=== PATIENT | female | born 2000 | race Caucasian/White ===

== ENCOUNTER 2020-11-05 13:59 | Inpatient (IN) ==
--- NOTE | 2020-11-05 14:20 | Emergency Department Note ---
Impression & Plan Suicidal ideation ED Provider Note NAME: BENOIT WONG AGE: 20 SEX: F : 2000 ARRIVES VIA: Walk-In INFORMANT: [Patient] ED PROVIDER(S): [Hermilo Burkett MD] CHIEF COMPLAINT: Mental health evaluation HISTORY OF PRESENT ILLNESS: The patient is a 20-year-old female presents to the ED for suicidal thoughts with a plan to overdose on pills. She also has this urge to pick at her skin. The patient has a history of depression and possibly bipolar disease. She sta joyce that recently, she has been under some increased stress. She feels stressed with school as finals are coming up. She had a recent pet . In addition, she did not get into the masters program at [facility] [employer] that she had applied for. Patient had her scheduled visit with [facility] today, she admitted to the above and she was sent here for evaluation. She is currently voluntary. The patient does admit to taking some extra pills to help with sleep although, she just took a few extra pills, she did not take a large amount. The patient denies cough or cold or congestion. There has been no fever or chills. She has been in baseline health otherwise. REVIEW OF SYSTEMS: See HPI for pertinent positives and negatives. A total of ten systems were reviewed and were otherwise negative. PMHx/PSHx: See Below SOCIAL HISTORY: See Below. PHYSICAL EXAM: GENERAL: Patient is in no acute distress. HEENT: No acute trauma, normocephalic atraumatic, mucous membranes moist, no nasal congestion, no scleral icterus. NECK: No stridor, no adenopathy, no meningismus, trachea is midline. LUNGS: Clear to auscultation bilaterally, no wheeze, no rhonchi, breath sounds equal. HEART: Without murmurs gallops or rubs, regular rate and rhythm. ABDOMEN: Soft, nontender, bowel sounds positive, no hernias, no peritonitis. EXTREMITIES: No cyanosis or edema, full range of motion of all the joints without pain or difficulty, no signs for acute trauma. NEUROLOGIC: Oriented x 3, no acute motor or sensory deficits, no focal weakness. SKIN: No rash, no jaundice, no diaphoresis. Psychiatric: Voluntary, somewhat flattened affect. Admits to an urge to overdose on pills and to pick at her skin. Cooperative. DIFFERENTIAL DIAGNOSIS: Mood disorder, infection, hypoglycemia, electrolyte abnormalities, cardiac sources, suicidal ideation, bipolar disease, intracerebral event, toxicologic etiology, trauma, neurologic event, as well as other pathologies. EMERGENCY DEPARTMENT COURSE/PROCEDURES: MEDICAL DECISION MAKING: There is no leukocytosis or worrisome anemia. There is a normal platelet count. No significant electrolyte abnormality or kidney failure. No concerning liver enzyme elevation. The patient appears to be in a euthyroid state. testing is negative. Urinalysis shows some contamination, no infection. Aspirin, Tylenol and alcohol levels were undetectable. Urine tox was negative. Covid and influenza testing were negative. On exam, the patient was cooperative. She did admit to some suicidal ideation and some thoughts of overdosing on pills. The patient was felt medically clear for a psychiatric evaluation. She was seen by our psychiatry case management team. Patient is being admitted voluntarily to [address] [place] [address] psychiatric floor. Past Med/Surg History Medical History Gastric reflux Mononucleosis Social History Smoking Status: Never smoker Hx Alcohol Use: No Preferred Language: [place] Leone[place] Communication Ability: Effective Visual Impairment: No Limitations Hearing Ability: Normal Beliefs That Will Affect Care: None current occupational status: student Feels Safe at Home: Yes Assistive Devices: None Allergies Allergies Allergy/AdvReac Type Severity Reaction Status Date / Time No Known Allergies Allergy Unverified 11/05/20 17:10 Home Meds Home Medications Medication Instructions Recorded Confirmed fluoxetine 20 mg PO HS 06/12/18 11/05/20 fluoxetine 10 mg PO HS 11/05/20 11/05/20 lorazepam 1 mg PO HS PRN 11/05/20 11/05/20 lurasidone [Latuda] 20 mg PO DAILY 11/05/20 11/05/20 trazodone 50 mg PO HS PRN 11/05/20 11/05/20 Results & Data (ED) Vital Signs Vital Signs - 24 hr 11/05/20 14:01 Temperature 36.3 C L Temperature Source Temporal Artery Scan Pulse Rate 96 H Respiratory Rate 16 Respiratory Effort / Characteristics Non-Labored Respiratory Depth Normal Blood Pressure 122/82 Blood Pressure Mean 95 Pulse Oximetry 99 Oxygen Delivery Method Room Air Sepsis Recent Fever Within 48 Hours No Sepsis New/Unexplained Change in Mental Status No Sepsis Action Taken by Nursing No Action Required Home Medications Current Medication List: was personally reviewed by me Laboratory Data Attestation: I reviewed the patient's lab results. Result diagrams: 11/05/20 14:31 11/05/20 14:31 Lab Results 11/05/20 11/05/20 11/05/20 Range/Units 14:20 14:20 14:31 WBC 7.77 (4.8-10.8) K/uL RBC 4.53 (4.2-5.4) M/uL Hgb 14.6 (12.0-16.0) g/dL Hct 40.0 (37-47) % MCV 88.3 (80-100) fL MCH 32.2 (25-34) pg MCHC 36.5 H (32-36) g/dL RDW Std Deviation 38.4 (36.4-46.3) fL RDW Coeff of Antonio 12.0 (11.5-14.5) % Plt Count 346 (130-400) K/uL MPV 9.5 (7.4-10.4) fL Immature Gran % (Auto) 0.4 % Neut % (Auto) 74.8 % Lymph % (Auto) 18.3 % [place] % (Auto) 6.0 % Eos % (Auto) 0.4 % Baso % (Auto) 0.1 % Neut # (Auto) 5.81 (1.4-6.5) K/uL Lymph # (Auto) 1.42 (1.2-3.4) K/uL [place] # (Auto) 0.47 (0.11-0.59) K/uL Eos # (Auto) 0.03 (0-0.5) K/uL Baso # (Auto) 0.01 (0-0.2) K/uL Immature Gran # (Auto) 0.03 H (0.00-0.02) K/uL Sodium (136-145) mmol/L Potassium (3.5-5.1) mmol/L Chloride (98-107) mmol/L Carbon Dioxide (21-32) mmol/L Anion Gap (3-11) BUN (7-18) mg/dl Creatinine (0.6-1.2) mg/dl Est Cr Clr Drug Dosing ml/min Est GFR ( Amer) Est GFR (Non-Af Amer) BUN/Creatinine Ratio (10-20) Glucose (70-99) mg/dl Calcium (8.5-10.1) mg/dl Total Bilirubin (0.2-1) mg/dl AST (15-37) U/L ALT (12-78) U/L Alkaline Phosphatase (45-117) U/L Total Protein (6.4-8.2) gm/dl Albumin (3.4-5.0) gm/dl Globulin (2.5-4.0) gm/dl Albumin/Globulin Ratio (0.9-2) TSH (0.300-4.500) uIu/ml HCG, Qual (Negative) Urine Color Yellow Urine Appearance Cloudy A (Clear) Urine pH 5.5 (4.5-7.5) Ur Specific [place] 1.024 (1.000-1.030) Urine Protein Negative (Negative) Urine Glucose (UA) Negative (Negative) Urine Ketones Trace H (Negative) Urine Blood 1+ H (Negative) Urine Nitrite Negative (Negative) Urine Bilirubin Negative (Negative) Urine Urobilinogen Negative (Negative) Ur Leukocyte Esterase Negative (Negative) Urine WBC (Auto) 10-30 H (0-5) /hpf Urine RBC (Auto) 0-4 (0-4) /hpf U Hyaline Cast (Auto) 0 (0-5) /lpf U Epithel Cells (Auto) >30 H (0-5) /lpf Urine Bacteria (Auto) 2+ H (Negative) Urine Yeast Not Reportable Salicylates (2.8-20) mg/dl Urine Opiates Screen Neg (Neg) Ur Methadone, Qual Neg (Neg) Acetaminophen (10-30) ug/ml Urine Barbiturates Neg (Neg) Ur Phencyclidine (PCP) Neg (Neg) U Amphetamin/Meth Scrn Neg (Neg) MDMA (Ecstasy) Screen Neg (Neg) U Benzodiazepines Scrn Neg (Neg) Ur Cocaine Metabolite Neg (Neg) U Marijuana (THC) Screen Neg (Neg) Ethyl Alcohol mg/dL (0-3) mg/dl COVID-19 Eval Order SARS-CoV-2 (PCR) (Negative) Influenza Type A (PCR) (Neg) Influenza Type B (PCR) (Neg) RSV (RT-PCR) (Neg) 11/05/20 11/05/20 11/05/20 Range/Units 14:31 14:31 14:31 WBC (4.8-10.8) K/uL RBC (4.2-5.4) M/uL Hgb (12.0-16.0) g/dL Hct (37-47) % MCV (80-100) fL MCH (25-34) pg MCHC (32-36) g/dL RDW Std Deviation (36.4-46.3) fL RDW Coeff of Antonio (11.5-14.5) % Plt Count (130-400) K/uL MPV (7.4-10.4) fL Immature Gran % (Auto) % Neut % (Auto) % Lymph % (Auto) % [place] % (Auto) % Eos % (Auto) % Baso % (Auto) % Neut # (Auto) (1.4-6.5) K/uL Lymph # (Auto) (1.2-3.4) K/uL [place] # (Auto) (0.11-0.59) K/uL Eos # (Auto) (0-0.5) K/uL Baso # (Auto) (0-0.2) K/uL Immature Gran # (Auto) (0.00-0.02) K/uL Sodium 138 (136-145) mmol/L Potassium 3.7 (3.5-5.1) mmol/L Chloride 107 (98-107) mmol/L Carbon Dioxide 26 (21-32) mmol/L Anion Gap 5.0 (3-11) BUN 12 (7-18) mg/dl Creatinine 0.74 (0.6-1.2) mg/dl Est Cr Clr Drug Dosing 101.4 ml/min Est GFR ( Amer) 134.2 Est GFR (Non-Af Amer) 115.8 BUN/Creatinine Ratio 16.0 (10-20) Glucose 85 (70-99) mg/dl Calcium 8.8 (8.5-10.1) mg/dl Total Bilirubin 0.6 (0.2-1) mg/dl AST 9 L (15-37) U/L ALT 20 (12-78) U/L Alkaline Phosphatase 103 (45-117) U/L Total Protein 7.2 (6.4-8.2) gm/dl Albumin 4.3 (3.4-5.0) gm/dl Globulin 2.9 (2.5-4.0) gm/dl Albumin/Globulin Ratio 1.5 (0.9-2) TSH 1.150 (0.300-4.500) uIu/ml HCG, Qual (Negative) Urine Color Urine Appearance (Clear) Urine pH (4.5-7.5) Ur Specific [place] (1.000-1.030) Urine Protein (Negative) Urine Glucose (UA) (Negative) Urine Ketones (Negative) Urine Blood (Negative) Urine Nitrite (Negative) Urine Bilirubin (Negative) Urine Urobilinogen (Negative) Ur Leukocyte Esterase (Negative) Urine WBC (Auto) (0-5) /hpf Urine RBC (Auto) (0-4) /hpf U Hyaline Cast (Auto) (0-5) /lpf U Epithel Cells (Auto) (0-5) /lpf Urine Bacteria (Auto) (Negative) Urine Yeast Salicylates < 1.7 L (2.8-20) mg/dl Urine Opiates Screen (Neg) Ur Methadone, Qual (Neg) Acetaminophen < 2 L (10-30) ug/ml Urine Barbiturates (Neg) Ur Phencyclidine (PCP) (Neg) U Amphetamin/Meth Scrn (Neg) MDMA (Ecstasy) Screen (Neg) U Benzodiazepines Scrn (Neg) Ur Cocaine Metabolite (Neg) U Marijuana (THC) Screen (Neg) Ethyl Alcohol mg/dL < 3.0 (0-3) mg/dl COVID-19 Eval Order SARS-CoV-2 (PCR) (Negative) Influenza Type A (PCR) (Neg) Influenza Type B (PCR) (Neg) RSV (RT-PCR) (Neg) 11/05/20 11/05/20 11/05/20 Range/Units 14:31 14:49 14:49 WBC (4.8-10.8) K/uL RBC (4.2-5.4) M/uL Hgb (12.0-16.0) g/dL Hct (37-47) % MCV (80-100) fL MCH (25-34) pg MCHC (32-36) g/dL RDW Std Deviation (36.4-46.3) fL RDW Coeff of Antonio (11.5-14.5) % Plt Count (130-400) K/uL MPV (7.4-10.4) fL Immature Gran % (Auto) % Neut % (Auto) % Lymph % (Auto) % [place] % (Auto) % Eos % (Auto) % Baso % (Auto) % Neut # (Auto) (1.4-6.5) K/uL Lymph # (Auto) (1.2-3.4) K/uL [place] # (Auto) (0.11-0.59) K/uL Eos # (Auto) (0-0.5) K/uL Baso # (Auto) (0-0.2) K/uL Immature Gran # (Auto) (0.00-0.02) K/uL Sodium (136-145) mmol/L Potassium (3.5-5.1) mmol/L Chloride (98-107) mmol/L Carbon Dioxide (21-32) mmol/L Anion Gap (3-11) BUN (7-18) mg/dl Creatinine (0.6-1.2) mg/dl Est Cr Clr Drug Dosing ml/min Est GFR ( Amer) Est GFR (Non-Af Amer) BUN/Creatinine Ratio (10-20) Glucose (70-99) mg/dl Calcium (8.5-10.1) mg/dl Total Bilirubin (0.2-1) mg/dl AST (15-37) U/L ALT (12-78) U/L Alkaline Phosphatase (45-117) U/L Total Protein (6.4-8.2) gm/dl Albumin (3.4-5.0) gm/dl Globulin (2.5-4.0) gm/dl Albumin/Globulin Ratio (0.9-2) TSH (0.300-4.500) uIu/ml HCG, Qual Negative (Negative) Urine Color Urine Appearance (Clear) Urine pH (4.5-7.5) Ur Specific [place] (1.000-1.030) Urine Protein (Negative) Urine Glucose (UA) (Negative) Urine Ketones (Negative) Urine Blood (Negative) Urine Nitrite (Negative) Urine Bilirubin (Negative) Urine Urobilinogen (Negative) Ur Leukocyte Esterase (Negative) Urine WBC (Auto) (0-5) /hpf Urine RBC (Auto) (0-4) /hpf U Hyaline Cast (Auto) (0-5) /lpf U Epithel Cells (Auto) (0-5) /lpf Urine Bacteria (Auto) (Negative) Urine Yeast Salicylates (2.8-20) mg/dl Urine Opiates Screen (Neg) Ur Methadone, Qual (Neg) Acetaminophen (10-30) ug/ml Urine Barbiturates (Neg) Ur Phencyclidine (PCP) (Neg) U Amphetamin/Meth Scrn (Neg) MDMA (Ecstasy) Screen (Neg) U Benzodiazepines Scrn (Neg) Ur Cocaine Metabolite (Neg) U Marijuana (THC) Screen (Neg) Ethyl Alcohol mg/dL (0-3) mg/dl COVID-19 Eval Order [facility] at [facility] SARS-CoV-2 (PCR) NEGATIVE (Negative) Influenza Type A (PCR) Negative (Neg) Influenza Type B (PCR) Negative (Neg) RSV (RT-PCR) Negative (Neg) Administered Medications Fluoxetine HCl (Fluoxetine Hcl 10 Mg Cap) 30 mg PO HS GRAYSON Stop: 12/05/20 20:59 Last Admin: 11/05/20 21:40 Dose: 30 mg Documented by: [id number] Lorazepam (Lorazepam 1 Mg Tab) 1 mg PO HS PRN PRN Reason: Anxiety Stop: 12/05/20 17:41 Last Admin: 11/05/20 20:41 Dose: 1 mg Documented by: [id number] Lurasidone HCl (Lurasidone Hcl 40 Mg Tab) 20 mg PO HS GRAYSON Stop: 12/05/20 20:59 Last Admin: 11/05/20 21:39 Dose: 20 mg Documented by: [id number] Discharge Plan Visit Data Chief Complaint: Mental Health Evaluation Stated Complaint: MENTAL HEALTH EVALUATION ED Provider: Hermilo Burkett Discharge Problem: Suicidal ideation Patient Disposition: Admitted As Inpatient Condition: Good Discharge Instructions Interventions: ED Discharge Assessment Last Done: 11/05/20 18:30
[2020-11-05 14:37] LABS: Appearance Urine Cloudy (Clear); Bacteria Urine Automated 2+ (Negative); Bilirubin Urine Negative (Negative); Blood Urine 1+ (Negative); Color Urine Yellow; Epithelial Cell Urine Auto >30 /lpf (0-5); Glucose Urine UA Negative (Negative); Ketones Urine Trace (Negative); Leukocyte Esterase Urine Negative (Negative); Nitrite Urine Negative (Negative); Protein Urine Negative (Negative); Specific Gravity Urine 1.024 (1.000-1.030); Urobilinogen Urine Negative (Negative); pH Urine 5.5 (4.5-7.5)
[2020-11-05 14:52] LABS: Basophils # (auto) 0.01 K/uL (0-0.2); Basophils % (auto) 0.1 %; Eosinophils # (auto) 0.03 K/uL (0-0.5); Eosinophils % (auto) 0.4 %; Hemoglobin 14.6 g/dL (12.0-16.0); Immature Granulocytes # (auto) 0.03 K/uL (0.00-0.02); Immature Granulocytes % (auto) 0.4 %; Lymphocytes # (auto) 1.42 K/uL (1.2-3.4); Lymphocytes % (auto) 18.3 %; Mean Corpuscular Hemoglobin 32.2 pg (25-34); Mean Corpuscular Hgb Conc 36.5 g/dL (32-36); Mean Corpuscular Volume 88.3 fL (80-100); Mean Platelet Volume 9.5 fL (7.4-10.4); Monocytes # (auto) 0.47 K/uL (0.11-0.59); Neutrophils # (auto) 5.81 K/uL (1.4-6.5); Neutrophils % (auto) 74.8 %; Platelet Count 346 K/uL (130-400); RDW Standard Deviation 38.4 fL (36.4-46.3); Red Blood Count 4.53 M/uL (4.2-5.4); White Blood Count 7.77 K/uL (4.8-10.8)
[2020-11-05 15:13] LABS: Acetaminophen < 2 ug/ml (10-30); Salicylate < 1.7 mg/dl (2.8-20)
[2020-11-05 15:14] LABS: Albumin Level 4.3 gm/dl (3.4-5.0); Calcium 8.8 mg/dl (8.5-10.1); Creatinine Clr Calc Pharmacy 101.4 ml/min; Est GFR (African American) 134.2; Est GFR (Non-African American) 115.8; Potassium 3.7 mmol/L (3.5-5.1)
[2020-11-05 15:15] LABS: Amphetamines+Metham, Urine Neg (Neg); Barbiturates, Urine Neg (Neg); Benzodiazepine, Urine Neg (Neg); Cocaine, Urine Neg (Neg); MDMA (Ecstacy), Urine Neg (Neg); Methadone, Urine Neg (Neg); Opiate, Urine Neg (Neg); Phencyclidine, Urine Neg (Neg)
[2020-11-05 15:15] LABS: Pregnancy Test, Serum Negative (Negative)
[2020-11-05 15:20] LABS: Cast Urine Automated 0 /lpf (0-5); RBC Urine Automated 0-4 /hpf (0-4)
[2020-11-05 15:24] LABS: Albumin Globulin Ratio 1.5 (0.9-2); Bilirubin,Total 0.6 mg/dl (0.2-1); Globulin 2.9 gm/dl (2.5-4.0); Thyroid Stimulating Hormone 1.15 uIu/ml (0.300-4.500); Total Protein 7.2 gm/dl (6.4-8.2)
[2020-11-05 15:52] LABS: Influenza A virus by PCR Negative (Neg); Influenza B virus by PCR Negative (Neg); RSV by PCR Negative (Neg); SARS CoV2 RNA(COVID-19) InHosp NEGATIVE (Negative)
[2020-11-05] MEDS ORDERED: ALUMINUM/MAGNESIUM SUSP 30 ML UDC PO PRN (17:38)
[2020-11-05] MEDS ORDERED: SODIUM CHLORIDE 0.65% NA SOLN 45 ML (OCEAN) PRN (17:38)
[2020-11-05] MEDS ORDERED: BISMUTH SUBSALICYLATE LIQD 236 ML PO PRN (17:38)
[2020-11-05] MEDS ORDERED: ACETAMINOPHEN 325 MG TAB PO PRN (17:38)
[2020-11-05] MEDS ORDERED: MAGNESIUM HYDROXIDE SUSP 30 ML UDC PO PRN (17:38)
[2020-11-05] MEDS: LORazepam 1 MG TAB PO PRN (20:41)
[2020-11-05] MEDS: LURASIDONE HCL 40 MG TAB PO SCH (21:39)
[2020-11-05] MEDS: FLUoxetine HCL 10 MG CAP PO SCH (21:40)
--- NOTE | 2020-11-06 07:53 | History & Physical ---
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 She was referred by her outpatient therapist at [facility]. Inpatient treatment is medically necessary due to the severity of symptoms and risk for suicide if discharged. (1) Suicidal ideation: 11/06 - Continue voluntary hospitalization, suicide checks for safety. Encourage group attendance and participation, work on healthy coping skills and discharge safety plan. Coordinate care with outpatient clinicians, and family meeting as indicated. (2) Bipolar disorder: 11/06 - Coordinate with outpatient Dr. Cartagena, request records and continue current meds, as doses just adjusted in the past couple of days - Check fasting labs for monitoring on an atypical antipsychotic (3) Generalized anxiety disorder: 11/06 - Continue SSRI which was just increased a couple of days ago, will continue and monitor - Work on behavioral techniques for managing anxiety, patient would like to be referred for therapy in her hometown as returning there in a couple weeks after the ester ends Risk Factors Assessment Male: No : Yes Do You Have Access To A Gun?: No Health Problems: No Mental Health Diagnoses: Yes Substance Use Disorders: No Family History of Suicide: No Previous Psychiatric Hospitalization: No Hopelessness: Yes Smoker: No Protective Factors Assessment : No Responsible for Young Children: No Employed: No Psychiatric History Identifying Data BENOIT WONG is a 20-year-old F [employer] student who has a history of depression, rule out bipolar, and anxiety, and was admitted on 11/05/20 17:38 on a 201 voluntary commitment for suicidal ideation. Chief Complaint "Well I had my weekly call with [facility], they asked if I'd ever thought about going to hospital". History of Present Illness Patient was referred to the ER from [facility] after she reported suicidal thoughts with a plan to overdose. She reported stress due to not getting into the masters program she wanted. She reported sometimes taking extra medication when she is unable to sleep. She reported decreased appetite sleep disruption, fatigue, and lack of motivation. She reported self injury since age 11 by scratching and skin picking. She was continued on her home medications, fluoxetine 30 mg daily lurasidone 20 mg at bedtime (just reduced from 40 mg a couple of days ago due to lethargy), trazodone 50 mg at bedtime and lorazepam 1 mg at bedtime. She agreed to voluntary hospitalization and signed in, but soon after arrival on the unit asked to leave, stating she wanted to leave to get back to school projects. She was offered a 72-hour notice but declined. On my assessment she reports mood has worsened over the past couple weeks, rates it a 3 out of 10. She reports suicidal thoughts, "I just want to sleep for a long time, I take sedatives to go to bed." Admits taking extra "sedatives" include trazodone, Tylenol PM, melatonin, Ativan, and Benadryl. She report no motivation to do schoolwork or go to class, and has been missing classes, with negative impact to academic performance. She usually gets all As but currently has B and C. She reports intentional weight loss. Sleep has been reduced even with various sleep medications. Recently started trazodone 100mg but felt intoxicated the next day, so dose was reduced. Racing thoughts and worry impairs sleep, "everything that's going on in my life." She denies ever being diagnosed with bipolar, "that's just something I think that I have," noting hypersexuality, racing thoughts, high and low moods, and having hallucinations on a medication, possibly lamotrigine? She reports episodes of 1-2 weeks of elevated mood, increased energy, decreased need for sleep, increase in goal directed activity (reading several books in a week, or writing a play and thinking she could get it published), which occur about once a year. Her outpatient psychiatrist started Latuda a couple of years ago as "she thought I might have depression." Maximum dose was 40mg, which she had been on for a year and a half due to recent daytime somnolence, and inability to sleep at night. She just started the lower dose earlier this week. Her fluoxetine dose was just increased from 20mg to 30mg a couple of days ago, and thinks it is helping. She denies recent panic, OCD, PTSD, psychosis. She reports perceptual disturbance of seeing "little black things that look like bugs" out of the corner of her eye, but when looks directly at them, there is nothing there. Additional stressor is "trying to make my family happy, not just lay in bed, they think I'm just lazy." She reports skin picking, which she has done since age 11, and has scars and open sores due to it. This is one of her primary concerns and treatment goals. Past Psychiatric History Current Psychiatric Diagnosis: bipolar, anxiety, depression [facility] Services[facility] [place]. [facility], since age 15 Therapist, Marquita at [facility] Previous Psych Admissions: Denies Do You Have Access To A Gun?: No History of Previous Suicide Attempt: No Past Medication Trials: lamotrigine - ? "felt weird" a medication she can't recall "made me extremely sick," thinks it was for panic attacks olanzapine - weight gain Allergies Allergy/AdvReac Type Severity Reaction Status Date / Time No Known Allergies Allergy Unverified 11/05/20 17:10 Home Medications Medication Instructions Recorded Confirmed Type fluoxetine 20 mg PO HS 06/12/18 11/05/20 History fluoxetine 10 mg PO HS 11/05/20 11/05/20 History lorazepam 1 mg PO HS PRN 11/05/20 11/05/20 History lurasidone [Latuda] 20 mg PO DAILY 11/05/20 11/05/20 History trazodone 50 mg PO HS PRN 11/05/20 11/05/20 History Family History Family History of: Bipolar (aunt and cousin) and Suicide Completion (uncle, unknown mental illness) Alcohol History Hx of Alcohol Use Over the Past 12 Months: Yes (a drink or 2 every other weekend) AUDIT Total Score: 1 Smoking Use Have You Smoked or Used Tobacco Products in the Last 30 Days: No Smoking Status: Never smoker Substance History Hx of Prescription Med Misuse Over the Past 12 Months: No Hx of Over the Counter Med Misuse Over the Past 12 Months: No Hx of Inhalent Misuse Over the Past 12 Months: No Hx of Organic Substance Use Over the Past 12 Months: No Hx of Illegal Substances/Street Drug Use Over Past 12 Months: No Problems as a Result of Past Substance Use: None Identified Personal History Living Arrangements: Apartment Highest Grade Completed: College Employment Status: Student ([employer] at [employer]) Marital Status: Single Number Of Children: 0 Beliefs That Will Affect Care: None Current Legal Problems: No Hx Traumatic Life Events: Yes Psychological Trauma History Comment: uncle's suicide when patient was 15 Patient History Medical History (Updated 11/06/20 @ 09:42 by Merly Browning MD) Bipolar disorder Gastric reflux Generalized anxiety disorder Mononucleosis Social History Smoking Status: Never smoker Hx Alcohol Use: No Preferred Language: [place] Communication Ability: Effective Visual Impairment: No Limitations Hearing Ability: Normal Beliefs That Will Affect Care: None current occupational status: student Feels Safe at Home: Yes Assistive Devices: None Review of Systems Review of Systems: All systems reviewed & are unremarkable except as noted in Subjective Physical Exam Psychiatric: Orientation: alert and cooperative Apperance: appropriately dressed, appropriately groomed and appeared stated age Eye Contact: good eye contact Motor Behavior: steady gait and station and no abnormal motor movements Speech: normal rate/rhythm/volume of speech Affect: + depressed affect, + constricted affect and mood congruent with affect Mood: + depressed mood Thought Process: goal directed thought process Thought Content: reality based without delusions Suicidal Thoughts: + reports suicidal thoughts Homicidal Thoughts: denies homicidal thoughts Hallucinations: no auditory hallucinations and no visual hallucinations Cognition: recent memory grossly intact, attention grossly intact and language grossly intact Estimat ed Intelligence: consistent with education level Insight: + fair insight Judgement: + fair judgement Vital Signs (Past 24 Hours): Last Vital Signs Temp 36.5 C 11/06/20 06:00 Pulse 80 11/06/20 06:37 Resp 16 11/06/20 06:00 BP 117/84 11/06/20 06:37 Pulse Ox 99 11/05/20 14:01 Exam Statement: A physical exam was performed in the ER prior to admission to the unit by Dr. Hermilo Burkett. I accept that physical as correct/medical clearance for the inpatient physical exam. Results & Data ([facility]) Laboratory Results Laboratory Results - last 24 hr 11/05/20 11/05/20 11/05/20 14:20 14:20 14:31 WBC 7.77 RBC 4.53 Hgb 14.6 Hct 40.0 MCV 88.3 MCH 32.2 MCHC 36.5 H RDW Std Deviation 38.4 RDW Coeff of [place] 12.0 Plt Count 346 MPV 9.5 Immature Gran % (Auto) 0.4 Neut % (Auto) 74.8 Lymph % (Auto) 18.3 [place] % (Auto) 6.0 Eos % (Auto) 0.4 Baso % (Auto) 0.1 Neut # (Auto) 5.81 Lymph # (Auto) 1.42 [place] # (Auto) 0.47 Eos # (Auto) 0.03 Baso # (Auto) 0.01 Immature Gran # (Auto) 0.03 H Sodium Potassium Chloride Carbon Dioxide Anion Gap BUN Creatinine Est Cr Clr Drug Dosing Est GFR ( Amer) Est GFR (Non-Af Amer) BUN/Creatinine Ratio Glucose Calcium Total Bilirubin AST ALT Alkaline Phosphatase Total Protein Albumin Globulin Albumin/Globulin Ratio TSH HCG, Qual Urine Color Yellow Urine Appearance Cloudy A Urine pH 5.5 Ur Specific [place] 1.024 Urine Protein Negative Urine Glucose (UA) Negative Urine Ketones Trace H Urine Blood 1+ H Urine Nitrite Negative Urine Bilirubin Negative Urine Urobilinogen Negative Ur Leukocyte Esterase Negative Urine WBC (Auto) 10-30 H Urine RBC (Auto) 0-4 U Hyaline Cast (Auto) 0 U Epithel Cells (Auto) >30 H Urine Bacteria (Auto) 2+ H Urine Yeast Not Reportable Salicylates Urine Opiates Screen Neg Ur Methadone, Qual Neg Acetaminophen Urine Barbiturates Neg Ur Phencyclidine (PCP) Neg U Amphetamin/Meth Scrn Neg MDMA (Ecstasy) Screen Neg U Benzodiazepines Scrn Neg Ur Cocaine Metabolite Neg U Marijuana (THC) Screen Neg Ethyl Alcohol mg/dL COVID-19 Eval Order SARS-CoV-2 (PCR) Influenza Type A (PCR) Influenza Type B (PCR) RSV (RT-PCR) 11/05/20 11/05/20 11/05/20 14:31 14:31 14:31 WBC RBC Hgb Hct MCV MCH MCHC RDW Std Deviation RDW Coeff of [place] Plt Count MPV Immature Gran % (Auto) Neut % (Auto) Lymph % (Auto) [place] % (Auto) Eos % (Auto) Baso % (Auto) Neut # (Auto) Lymph # (Auto) [place] # (Auto) Eos # (Auto) Baso # (Auto) Immature Gran # (Auto) Sodium 138 Potassium 3.7 Chloride 107 Carbon Dioxide 26 Anion Gap 5.0 BUN 12 Creatinine 0.74 Est Cr Clr Drug Dosing 101.4 Est GFR ( Amer) 134.2 Est GFR (Non-Af Amer) 115.8 BUN/Creatinine Ratio 16.0 Glucose 85 Calcium 8.8 Total Bilirubin 0.6 AST 9 L ALT 20 Alkaline Phosphatase 103 Total Protein 7.2 Albumin 4.3 Globulin 2.9 Albumin/Globulin Ratio 1.5 TSH 1.150 HCG, Qual Urine Color Urine Appearance Urine pH Ur Specific [place] Urine Protein Urine Glucose (UA) Urine Ketones Urine Blood Urine Nitrite Urine Bilirubin Urine Urobilinogen Ur Leukocyte Esterase Urine WBC (Auto) Urine RBC (Auto) U Hyaline Cast (Auto) U Epithel Cells (Auto) Urine Bacteria (Auto) Urine Yeast Salicylates < 1.7 L Urine Opiates Screen Ur Methadone, Qual Acetaminophen < 2 L Urine Barbiturates Ur Phencyclidine (PCP) U Amphetamin/Meth Scrn MDMA (Ecstasy) Screen U Benzodiazepines Scrn Ur Cocaine Metabolite U Marijuana (THC) Screen Ethyl Alcohol mg/dL < 3.0 COVID-19 Eval Order SARS-CoV-2 (PCR) Influenza Type A (PCR) Influenza Type B (PCR) RSV (RT-PCR) 11/05/20 11/05/20 11/05/20 14:31 14:49 14:49 WBC RBC Hgb Hct MCV MCH MCHC RDW Std Deviation RDW Coeff of [place] Plt Count MPV Immature Gran % (Auto) Neut % (Auto) Lymph % (Auto) [place] % (Auto) Eos % (Auto) Baso % (Auto) Neut # (Auto) Lymph # (Auto) [place] # (Auto) Eos # (Auto) Baso # (Auto) Immature Gran # (Auto) Sodium Potassium Chloride Carbon Dioxide Anion Gap BUN Creatinine Est Cr Clr Drug Dosing Est GFR ( Amer) Est GFR (Non-Af Amer) BUN/Creatinine Ratio Glucose Calcium Total Bilirubin AST ALT Alkaline Phosphatase Total Protein Albumin Globulin Albumin/Globulin Ratio TSH HCG, Qual Negative Urine Color Urine Appearance Urine pH Ur Specific [place] Urine Protein Urine Glucose (UA) Urine Ketones Urine Blood Urine Nitrite Urine Bilirubin Urine Urobilinogen Ur Leukocyte Esterase Urine WBC (Auto) Urine RBC (Auto) U Hyaline Cast (Auto) U Epithel Cells (Auto) Urine Bacteria (Auto) Urine Yeast Salicylates Urine Opiates Screen Ur Methadone, Qual Acetaminophen Urine Barbiturates Ur Phencyclidine (PCP) U Amphetamin/Meth Scrn MDMA (Ecstasy) Screen U Benzodiazepines Scrn Ur Cocaine Metabolite U Marijuana (THC) Screen Ethyl Alcohol mg/dL COVID-19 Eval Order Cov[facility]sv at [facility] SARS-CoV-2 (PCR) NEGATIVE Influenza Type A (PCR) Negative Influenza Type B (PCR) Negative RSV (RT-PCR) Negative Current Inpatient Medications Current Inpatient Medications: Current Inpatient Medications Acetaminophen (Acetaminophen 325 Mg Tab) 650 mg PO Q4H PRN PRN Reason: Headache or Minor Fever Stop: 12/05/20 17:37 Al Hydrox/Mg Hydrox/Simethicone (Aluminum/Magnesium Susp 30 Ml Udc) 30 ml PO Q4H PRN PRN Reason: GI Upset Stop: 12/05/20 17:37 Bismuth Subsalicylate (Bismuth Subsalicylate Liqd 236 Ml) 15 ml PO PRN PRN PRN Reason: Loose Stool Stop: 12/05/20 17:37 Fluoxetine HCl (Fluoxetine Hcl 10 Mg Cap) 30 mg PO HS GRAYSON Stop: 12/05/20 20:59 Last Admin: 11/05/20 21:40 Dose: 30 mg Documented by: Lorazepam (Lorazepam 1 Mg Tab) 1 mg PO HS PRN PRN Reason: Anxiety Stop: 12/05/20 17:41 Last Admin: 11/05/20 20:41 Dose: 1 mg Documented by: Lurasidone HCl (Lurasidone Hcl 40 Mg Tab) 20 mg PO HS GRAYSON Stop: 12/05/20 20:59 Last Admin: 11/05/20 21:39 Dose: 20 mg Documented by: Magnesium Hydroxide (Magnesium Hydroxide Susp 30 Ml Udc) 30 ml PO DAILY PRN PRN Reason: Constipation Stop: 12/05/20 17:37 Sodium Chloride (Sodium Chloride 0.65% Na Soln 45 Ml ([place])) 1 - 2 sprays NA PRN PRN PRN Reason: Nasal Dryness/Congestion Stop: 12/05/20 17:37 Trazodone HCl (Trazodone Hcl 50 Mg Tab) 50 mg PO HS PRN PRN Reason: Insomnia Stop: 12/05/20 20:59
[2020-11-06] MEDS: FLUoxetine HCL 10 MG CAP PO SCH (21:06)
[2020-11-06] MEDS: LURASIDONE HCL 40 MG TAB PO SCH (21:07)
[2020-11-06] MEDS: LORazepam 1 MG TAB PO PRN (21:12)
[2020-11-06] MEDS: traZODone HCL 50 MG TAB PO PRN (21:12)
[2020-11-07 08:34] LABS: Glucose Fasting 82 mg/dl (70-99)
[2020-11-07 08:41] LABS: Chol HDL Ratio 3; Cholesterol 147 mg/dl (0-200); HDL Cholesterol 44 mg/dl; LDL Cholesterol Calculated 86 mg/dl; Triglycerides 85 mg/dl (0-150); VLDL Cholesterol 17 mg/dl
--- NOTE | 2020-11-07 12:50 | Psychiatric Progress Note ---
Date of Service November 07, 2020 Impression / Recommendations Impression 20-year-old [employer] student with a history of depression and anxiety, rule out bipolar disorder, who presents with worsening depression and suicidal ideation in the context of poor school performance. She was referred by her outpatient therapist [facility]. Inpatient treatment is medically necessary due to the severity of symptoms and risk for suicide if discharged. Pt signed 72-hour notice which expires on at 10:55. (1) Suicidal ideation: 11/06 - Continue voluntary hospitalization, suicide checks for safety. Encourage group attendance and participation, work on healthy coping skills and discharge safety plan. Coordinate care with outpatient clinicians, and family meeting as indicated. 11/07 - Pt denying SI - Family meeting with mother yesterday, encourage completion of written safety plan (2) Bipolar disorder: 11/06 - Coordinate with outpatient Dr. Cartagena, request records and continue current meds, as doses just adjusted in the past couple of days - Check fasting labs for monitoring on an atypical antipsychotic 11/07 - Continue current medication regimen - Reports improved mood - Family meeting with mother yesterday - Fasting glucose and lipid panel reviewed with patient, all values WNL (3) Generalized anxiety disorder: 11/06 - Continue SSRI which was just increased a couple of days ago, will continue and monitor - Work on behavioral techniques for managing anxiety, patient would like to be referred for therapy in her hometown as returning there in a couple weeks after the semester ends 11/07 - Continue current medication regimen - Continue to assist with development of healthy coping skills Risk Factors Assessment Male: No : Yes Do You Have Access To A Gun?: No Health Problems: No Mental Health Diagnoses: Yes Substance Use Disorders: No Family History of Suicide: No Previous Psychiatric Hospitalization: No Hopelessness: Yes Smoker: No Protective Factors Assessment : No Responsible for Young Children: No Employed: No Interval History Identifying Information BENOIT WONG is a 20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 Chief Complaint "I'm kind of feeling like this was a mistake. Like I didn't actually need to be here." Review of Systems Notes Constitutional: reports poor sleep Cardiovascular: denied Respiratory: denied Gastrointestinal: denied Neurological: denied Psychiatric: denies symptoms other than stated above Total of at least 10 systems reviewed, pertinent positives as above and in HPI. Sleep Information Total Hours of Sleep: 6 Meal Information Percent Meal Consumed - Breakfast: 90 Percent Meal Consumed - Lunch: 100 Percent Meal Consumed - Dinner: 30 Subjective Subjective Patient was seen & assessed and interval progress reviewed with treatment team. Staff report the patient has been guarded and hesitant to participate with groups. She had a family meeting with mother yesterday and admitted to feeling as though she needed to overcompensate with positivity to make up for her depression. Pt was seen today to assess progress since admission. Pt states to this provider that she is feeling "a lot better", but admits "I'm kind of feeling like this was a mistake. Like I didn't actually need to be here." Pt shares openly with this provider that she felt pressured to present to the ED and "I had said I had considered the hospital, but I feel like that got taken as 'yes, I need to go'." Pt admits that she is not currently experiencing suicidal ideation, but states "I've been having those thoughts for a long time. To be honest, I thought they were normal and that everyone had them...it was weird to know that my friends didn't all feel the same way I did, so then I stopped wanting to talk about it." Pt states that she is happy with her current med ication regimen, as she just recently underwent changes. Fasting labs were reviewed. Pt states she is still anxious, but proud that she is learning new coping skills to prevent skin picking behaviors - specifically finding a frozen orange on her skin to be helpful last evening. Pt is hoping to be "released to my mom as soon as possible." She denied other specific needs or concerns today. Physical Exam Psychiatric Orientation: alert, oriented x 3 and cooperative Apperance: appropriately dressed, appropriately groomed and appeared stated age Eye Contact: good eye contact Motor Behavior: steady gait and station and no abnormal motor movements Speech: normal rate/rhythm/volume of speech Affect: + anxious affect and + constricted affect Mood: + anxious mood (but reports improved ability to cope); no depressed mood ("a lot better") Thought Process: goal directed thought process, clear/coherent thought process and thought association intact Thought Content: reality based without delusions; no hopelessness and no worthlessness Suicidal Thoughts: denies suicidal thoughts, denies suicidal plan and denies suicidal intent Homicidal Thoughts: denies homicidal thoughts Hallucinations: no auditory hallucinations and no visual hallucinations Cognition: recent memory grossly intact, attention grossly intact and language grossly intact Estimated Intelligence: consistent with education level Insight: + fair insight Judgement: + fair judgement Vital Signs (Past 24 Hours) Last Vital Signs Temp 36.4 C L 11/07/20 06:00 Pulse 84 11/07/20 06:34 Resp 16 11/07/20 06:00 BP 112/82 11/07/20 06:34 Pulse Ox 99 11/05/20 14:01 Results & Data ([facility]) Laboratory Results Laboratory Results - last 24 hr 11/07/20 07:43 Fasting Glucose 82 Triglycerides 85 Cholesterol 147 LDL Cholesterol, Calc 86 VLDL Cholesterol, Calc 17 HDL Cholesterol 44 Cholesterol/HDL Ratio 3 Current Inpatient Medications Current Inpatient Medications: Current Inpatient Medications Acetaminophen (Acetaminophen 325 Mg Tab) 650 mg PO Q4H PRN PRN Reason: Headache or Minor Fever Stop: 12/05/20 17:37 Last Admin: 11/06/20 21:06 Dose: 650 mg Documented by: Al Hydrox/Mg Hydrox/Simethicone (Aluminum/Magnesium Susp 30 Ml Udc) 30 ml PO Q4H PRN PRN Reason: GI Upset Stop: 12/05/20 17:37 Bismuth Subsalicylate (Bismuth Subsalicylate Liqd 236 Ml) 15 ml PO PRN PRN PRN Reason: Loose Stool Stop: 12/05/20 17:37 Fluoxetine HCl (Fluoxetine Hcl 10 Mg Cap) 30 mg PO HS GRAYSON Stop: 12/05/20 20:59 Last Admin: 11/06/20 21:06 Dose: 30 mg Documented by: Lorazepam (Lorazepam 1 Mg Tab) 1 mg PO HS PRN PRN Reason: Anxiety Stop: 12/05/20 17:41 Last Admin: 11/06/20 21:12 Dose: 1 mg Documented by: Lurasidone HCl (Lurasidone Hcl 40 Mg Tab) 20 mg PO HS GRAYSON Stop: 12/05/20 20:59 Last Admin: 11/06/20 21:07 Dose: 20 mg Documented by: Magnesium Hydroxide (Magnesium Hydroxide Susp 30 Ml Udc) 30 ml PO DAILY PRN PRN Reason: Constipation Stop: 12/05/20 17:37 Sodium Chloride (Sodium Chloride 0.65% Na Soln 45 Ml ([place])) 1 - 2 sprays NA PRN PRN PRN Reason: Nasal Dryness/Congestion Stop: 12/05/20 17:37 Trazodone HCl (Trazodone Hcl 50 Mg Tab) 50 mg PO HS PRN PRN Reason: Insomnia Stop: 12/05/20 20:59 Last Admin: 11/06/20 21:12 Dose: 50 mg Documented by: Mental Health & Subst Abuse Tx Psychiatrist Name of Psychiatrist: Dr. Nima Cartagena Psychiatrist's Date of Appointment with Psychiatrist: 11/08/20 Time of Appointment with Psychiatrist: 3:00 p.m. Psychiatric Appointment Comment: [id number] [id number] Therapist Name of Therapist: ANALIA Juárez Therapist's Date of Therapist Appointment: 11/11/20 Time of Therapist Appointment: 11:00 a.m. Therapy Appointment Comment: Telehealth Staff Nurse Name of Staff Nurse: [facility] Phone Number for Staff Nurse: [phone] Case Management Appointment Comment: Will follow up with you via telephone call Post Discharge Appointments Primary Care Physician Name Of Family Doctor: [facility] Primary [facility] Time of Appointment with PCP: Follow up as needed Provider Appointment Comment: [facility] Other #1: Name of Aftercare Appointment: [facility] Group Phone Number of Aftercare Appointment: [phone] Date of Aftercare Appointment: 11/11/20 Time of Aftercare Appointment: 10:00 a.m. Aftercare Appointment Comment: Continue to attend group programming as scheduled Contact Information Discharge Discharge Address: [address] [place] [address] [place] [id number] Contact Information Comment: Permanent Home Address
[2020-11-07] MEDS: LURASIDONE HCL 40 MG TAB PO SCH (21:08)
[2020-11-07] MEDS: FLUoxetine HCL 10 MG CAP PO SCH (21:08)
[2020-11-07] MEDS: traZODone HCL 50 MG TAB PO PRN (21:09)
[2020-11-07] MEDS: LORazepam 1 MG TAB PO PRN (21:09)
--- NOTE | 2020-11-08 08:23 | Discharge Summary ---
Date of Service November 08, 2020 History of Present Illness Patient was referred to the ER from [facility] after she reported suicidal thoughts with a plan to overdose. She reported stress due to not getting into the masters program she wanted. She reported sometimes taking extra medication when she is unable to sleep. She reported decreased appetite sleep disruption, fatigue, and lack of motivation. She reported self injury since age 11 by scratching and skin picking. She was continued on her home medications, fluoxetine 30 mg daily lurasidone 20 mg at bedtime (just reduced from 40 mg a couple of days ago due to lethargy), trazodone 50 mg at bedtime and lorazepam 1 mg at bedtime. She agreed to voluntary hospitalization and signed in, but soon after arrival on the unit asked to leave, stating she wanted to leave to get back to school projects. She was offered a 72-hour notice but declined. On my assessment she reports mood has worsened over the past couple weeks, rates it a 3 out of 10. She reports suicidal thoughts, "I just want to sleep for a long time, I take sedatives to go to bed." Admits taking extra "sedatives" include trazodone, Tylenol PM, melatonin, Ativan, and Benadryl. She report no motivation to do schoolwork or go to class, and has been missing classes, with negative impact to academic performance. She usually gets all As but currently has B and C. She reports intentional weight loss. Sleep has been reduced even with various sleep medications. Recently started trazodone 100mg but felt intoxicated the next day, so dose was reduced. Racing thoughts and worry impairs sleep, "everything that's going on in my life." She denies ever being diagnosed with bipolar, "that's just something I think that I have," noting hypersexuality, racing thoughts, high and low moods, and having hallucinations on a medication, possibly lamotrigine? She reports episodes of 1-2 weeks of elevated mood, increased energy, decreased need for sleep, increase in goal directed activity (reading several books in a week, or writing a play and thinking she could get it published), which occur about once a year. Her outpatient psychiatrist started Latuda a couple of years ago as "she thought I might have depression." Maximum dose was 40mg, which she had been on for a year and a half due to recent daytime somnolence, and inability to sleep at night. She just started the lower dose earlier this week. Her fluoxetine dose was just increased from 20mg to 30mg a couple of days ago, and thinks it is helping. She denies recent panic, OCD, PTSD, psychosis. She reports perceptual disturbance of seeing "little black things that look like bugs" out of the corner of her eye, but when looks directly at them, there is nothing there. Additional stressor is "trying to make my family happy, not just lay in bed, they think I'm just lazy." She reports skin picking, which she has done since age 11, and has scars and open sores due to it. This is one of her primary concerns and treatment goals. Physical Exam Psychiatric Orientation: alert and cooperative Apperance: appropriately dressed, appropriately groomed and appeared stated age Eye Contact: good eye contact Motor Behavior: steady gait and station and no abnormal motor movements Speech: normal rate/rhythm/volume of speech Affect: + blunted affect "Better." Thought Process: goal directed thought process and linear/logical thought process Thought Content: reality based without delusions Suicidal Thoughts: denies suicidal thoughts Homicidal Thoughts: denies homicidal thoughts Hallucinations: no auditory hallucinations Cognition: recent memory grossly intact, attention grossly intact and language grossly intact Estimated Intelligence: consistent with education level Insight: + fair insight Judgement: + fair judgement Vital Signs (Past 24 Hours) Last Vital Signs Temp 36.7 C 11/08/20 06:38 Pulse 82 11/08/20 06:39 Resp 16 11/08/20 06:38 BP 109/74 11/08/20 06:39 Pulse Ox 99 11/05/20 14:01 Principal Diagnosis Bipolar disorder NOS Generalized anxiety disorder Psychiatric Data The patient was hospitalized for 3 days. She was continued on her home medications, tolerated them well, and felt they were helping her. She is observed to be eating and sleeping well on the unit, was engaged, attended and participated in groups, and utilize new coping skills to deal with anxiety and urges to pick at her skin, such as holding a frozen orange. She expressed regret about signing into the hospital, feeling that she was pressured to come here, and submitted a 72-hour notice requesting to withdraw from treatment. [facility] was contacted regarding her treatment there, and stated she had been seen weekly for "urgent" visits, as well as group programming. They agreed to continue to see her through the remainder of the semester, with a plan to get a therapist in her hometown for the summer break. A family meeting was held with the social work associate and her mother, and although the patient expressed fears of opening up to her family about her mental health struggles, her mother was supportive, although admitted difficulty knowing how to best support patient. Education about depression and anxiety were provided, and shame and pressure to appear well were discussed. The plan to get a therapist at home was discussed. Day of Discharge Assessment Staff report the patient has been attending participating in groups and therapy. She has been journaling and processing with staff. She reported being pleased that she has not been scratching her arms or skin picking, coping skills instead, such as aromatherapy. Her affect has been brighter, she has been taking medications without difficulty, and slept 7.75 hours overnight. On my assessment, she states that mood has improved since admission, anxiety is reduced, and she denies suicidal thoughts. She is able to review her discharge safety plan, including following up with her psychiatrist and therapist, and scheduling with a therapist at home in preparation for transition home for the summer vacation. Her mother is in town and will be staying with her after discharge. She denies any safety concerns. She had some racing thoughts when trying to fall asleep last night, with worries about missing school, but says she was able to "calm down" using self talk. Reviewed sleep hygiene in detail, she states sleep disruption has been a problem for her for years. She has a bedtime routine, including taking a shower, then reading or watching a movie. She has put a lot of thought into creating a good sleep environment, and uses lavender to help fall asleep. She states it typically takes her 2-3 hours to fall asleep, and she often feels tired during the day. She is not sure how much her current regimen of trazodone and Ativan is helping for sleep, and discussed recommendations for short-term use of Ativan, that sleep will likely improve his mood improves, and that she may need to try something else. She denies side effects to medications, and feels that overall they are helping her. Transition of Care Transition Of Care Record: was reviewed with the patient Advance Directives Advance Directives Information Provided: Yes Advance Directives: No Mental Health Advance Directive: No Advance Directives on File: No Living Will: Yes Power of Reagent Tender Helper: No Advance Directives Reason:: Declines as Mental Health Visit. Risk Factors Assessment Respecters were mitigated by admission to the inpatient unit, use of medications to target mood and anxiety symptoms, education about diagnoses and treatment recommendations, coordination with outpatient clinicians, participation in groups and therapy, working on healthy coping skills and completing a discharge safety plan, and family meeting with mother and social work. Patient is reporting improved mood and anxiety, denying thoughts of harming herself or others, is eating and sleeping, taking medications as prescribed, and performing ADLs independently. She has submitted a 72-hour notice requesting to withdraw from treatment, and as she is no longer at acute risk of harm to herself, can be managed as an outpatient at this time. She does not have risk factors indicating harm to others. Male: No : Yes Do You Have Access To A Gun?: No Health Problems: No Mental Health Diagnoses: Yes Substance Use Disorders: No Previous Attempt: No Family History of Suicide: No Previous Psychiatric Hospitalization: No Hopelessness: Yes Smoker: No Protective Factors Assessment : No Responsible for Young Children: No Employed: No Stable Relationships: Yes Supportive Family: Yes Good Rapport with Provider: Yes Tobacco Cessation at Discharge Tobacco Cessation Medication Prescribed at Discharge: Not Applicable/Non-Smoker Total Time Total Time Spent: Greater Than 30 Minutes Total Time Includes: Examination of the patient, Discharge Planning and Medication Reconciliation Discharge Data Lab Results 11/05/20 11/05/20 11/05/20 14:20 14:20 14:31 WBC 7.77 RBC 4.53 Hgb 14.6 Hct 40.0 MCV 88.3 MCH 32.2 MCHC 36.5 H RDW Std Deviation 38.4 RDW Coeff of Antonio 12.0 Plt Count 346 MPV 9.5 Immature Gran % (Auto) 0.4 Neut % (Auto) 74.8 Lymph % (Auto) 18.3 [place] % (Auto) 6.0 Eos % (Auto) 0.4 Baso % (Auto) 0.1 Neut # (Auto) 5.81 Lymph # (Auto) 1.42 [place] # (Auto) 0.47 Eos # (Auto) 0.03 Baso # (Auto) 0.01 Immature Gran # (Auto) 0.03 H Sodium Potassium Chloride Carbon Dioxide Anion Gap BUN Creatinine Est Cr Clr Drug Dosing Est GFR ( Amer) Est GFR (Non-Af Amer) BUN/Creatinine Ratio Glucose Fasting Glucose Calcium Total Bilirubin AST ALT Alkaline Phosphatase Total Protein Albumin Globulin Albumin/Globulin Ratio Triglycerides Cholesterol LDL Cholesterol, Calc VLDL Cholesterol, Calc HDL Cholesterol Cholesterol/HDL Ratio TSH HCG, Qual Urine Color Yellow Urine Appearance Cloudy A Urine pH 5.5 Ur Specific [place] 1.024 Urine Protein Negative Urine Glucose (UA) Negative Urine Ketones Trace H Urine Blood 1+ H Urine Nitrite Negative Urine Bilirubin Negative Urine Urobilinogen Negative Ur Leukocyte Esterase Negative Urine WBC (Auto) 10-30 H Urine RBC (Auto) 0-4 U Hyaline Cast (Auto) 0 U Epithel Cells (Auto) >30 H Urine Bacteria (Auto) 2+ H Urine Yeast Not Reportable Salicylates Urine Opiates Screen Neg Ur Methadone, Qual Neg Acetaminophen Urine Barbiturates Neg Ur Phencyclidine (PCP) Neg U Amphetamin/Meth Scrn Neg MDMA (Ecstasy) Screen Neg U Benzodiazepines Scrn Neg Ur Cocaine Metabolite Neg U Marijuana (THC) Screen Neg Ethyl Alcohol mg/dL COVID-19 Eval Order SARS-CoV-2 (PCR) Influenza Type A (PCR) Influenza Type B (PCR) RSV (RT-PCR) 11/05/20 11/05/20 11/05/20 14:31 14:31 14:31 WBC RBC Hgb Hct MCV MCH MCHC RDW Std Deviation RDW Coeff of Antonio Plt Count MPV Immature Gran % (Auto) Neut % (Auto) Lymph % (Auto) [place] % (Auto) Eos % (Auto) Baso % (Auto) Neut # (Auto) Lymph # (Auto) [place] # (Auto) Eos # (Auto) Baso # (Auto) Immature Gran # (Auto) Sodium 138 Potassium 3.7 Chloride 107 Carbon Dioxide 26 Anion Gap 5.0 BUN 12 Creatinine 0.74 Est Cr Clr Drug Dosing 101.4 Est GFR ( Amer) 134.2 Est GFR (Non-Af Amer) 115.8 BUN/Creatinine Ratio 16.0 Glucose 85 Fasting Glucose Calcium 8.8 Total Bilirubin 0.6 AST 9 L ALT 20 Alkaline Phosphatase 103 Total Protein 7.2 Albumin 4.3 Globulin 2.9 Albumin/Globulin Ratio 1.5 Triglycerides Cholesterol LDL Cholesterol, Calc VLDL Cholesterol, Calc HDL Cholesterol Cholesterol/HDL Ratio TSH 1.150 HCG, Qual Urine Color Urine Appearance Urine pH Ur Specific [place] Urine Protein Urine Glucose (UA) Urine Ketones Urine Blood Urine Nitrite Urine Bilirubin Urine Urobilinogen Ur Leukocyte Esterase Urine WBC (Auto) Urine RBC (Auto) U Hyaline Cast (Auto) U Epithel Cells (Auto) Urine Bacteria (Auto) Urine Yeast Salicylates < 1.7 L Urine Opiates Screen Ur Methadone, Qual Acetaminophen < 2 L Urine Barbiturates Ur Phencyclidine (PCP) U Amphetamin/Meth Scrn MDMA (Ecstasy) Screen U Benzodiazepines Scrn Ur Cocaine Metabolite U Marijuana (THC) Screen Ethyl Alcohol mg/dL < 3.0 COVID-19 Eval Order SARS-CoV-2 (PCR) Influenza Type A (PCR) Influenza Type B (PCR) RSV (RT-PCR) 11/05/20 11/05/20 11/05/20 14:31 14:49 14:49 WBC RBC Hgb Hct MCV MCH MCHC RDW Std Deviation RDW Coeff of Antonio Plt Count MPV Immature Gran % (Auto) Neut % (Auto) Lymph % (Auto) [place] % (Auto) Eos % (Auto) Baso % (Auto) Neut # (Auto) Lymph # (Auto) [place] # (Auto) Eos # (Auto) Baso # (Auto) Immature Gran # (Auto) Sodium Potassium Chloride Carbon Dioxide Anion Gap BUN Creatinine Est Cr Clr Drug Dosing Est GFR ( Amer) Est GFR (Non-Af Amer) BUN/Creatinine Ratio Glucose Fasting Glucose Calcium Total Bilirubin AST ALT Alkaline Phosphatase Total Protein Albumin Globulin Albumin/Globulin Ratio Triglycerides Cholesterol LDL Cholesterol, Calc VLDL Cholesterol, Calc HDL Cholesterol Cholesterol/HDL Ratio TSH HCG, Qual Negative Urine Color Urine Appearance Urine pH Ur Specific [place] Urine Protein Urine Glucose (UA) Urine Ketones Urine Blood Urine Nitrite Urine Bilirubin Urine Urobilinogen Ur Leukocyte Esterase Urine WBC (Auto) Urine RBC (Auto) U Hyaline Cast (Auto) U Epithel Cells (Auto) Urine Bacteria (Auto) Urine Yeast Salicylates Urine Opiates Screen Ur Methadone, Qual Acetaminophen Urine Barbiturates Ur Phencyclidine (PCP) U Amphetamin/Meth Scrn MDMA (Ecstasy) Screen U Benzodiazepines Scrn Ur Cocaine Metabolite U Marijuana (THC) Screen Ethyl Alcohol mg/dL COVID-19 Eval Order CovFluRsv at [facility] SARS-CoV-2 (PCR) NEGATIVE Influenza Type A (PCR) Negative Influenza Type B (PCR) Negative RSV (RT-PCR) Negative 11/07/20 07:43 WBC RBC Hgb Hct MCV MCH MCHC RDW Std Deviation RDW Coeff of Antonio Plt Count MPV Immature Gran % (Auto) Neut % (Auto) Lymph % (Auto) [place] % (Auto) Eos % (Auto) Baso % (Auto) Neut # (Auto) Lymph # (Auto) [place] # (Auto) Eos # (Auto) Baso # (Auto) Immature Gran # (Auto) Sodium Potassium Chloride Carbon Dioxide Anion Gap BUN Creatinine Est Cr Clr Drug Dosing Est GFR ( Amer) Est GFR (Non-Af Amer) BUN/Creatinine Ratio Glucose Fasting Glucose 82 Calcium Total Bilirubin AST ALT Alkaline Phosphatase Total Protein Albumin Globulin Albumin/Globulin Ratio Triglycerides 85 Cholesterol 147 LDL Cholesterol, Calc 86 VLDL Cholesterol, Calc 17 HDL Cholesterol 44 Cholesterol/HDL Ratio 3 TSH HCG, Qual Urine Color Urine Appearance Urine pH Ur Specific [place] Urine Protein Urine Glucose (UA) Urine Ketones Urine Blood Urine Nitrite Urine Bilirubin Urine Urobilinogen Ur Leukocyte Esterase Urine WBC (Auto) Urine RBC (Auto) U Hyaline Cast (Auto) U Epithel Cells (Auto) Urine Bacteria (Auto) Urine Yeast Salicylates Urine Opiates Screen Ur Methadone, Qual Acetaminophen Urine Barbiturates Ur Phencyclidine (PCP) U Amphetamin/Meth Scrn MDMA (Ecstasy) Screen U Benzodiazepines Scrn Ur Cocaine Metabolite U Marijuana (THC) Screen Ethyl Alcohol mg/dL COVID-19 Eval Order SARS-CoV-2 (PCR) Influenza Type A (PCR) Influenza Type B (PCR) RSV (RT-PCR) Hospital Course (1) Suicidal ideation: 11/06 - Continue voluntary hospitalization, suicide checks for safety. Encourage group attendance and participation, work on healthy coping skills and discharge safety plan. Coordinate care with outpatient clinicians, and family meeting as indicated. 11/07 - Pt denying SI - Family meeting with mother yesterday, encourage completion of written safety plan (2) Bipolar disorder: 11/06 - Coordinate with outpatient Dr. Cartagena, request records and continue current meds, as doses just adjusted in the past couple of days - Check fasting labs for monitoring on an atypical antipsychotic 11/07 - Continue current medication regimen - Reports improved mood - Family meeting with mother yesterday - Fasting glucose and lipid panel reviewed with patient, all values WNL 11/08 -Patient submitted a 72-hour notice requesting to withdraw from treatment, no acute safety concerns, so will be discharged today. Mother is in town and will stay with her through the weekend. -Follow-up with outpatient psychiatrist, Dr. Cartagena, on 11/21/2020. Send records for care coordination. Follow-up with [facility] both individual and group therapy, and will schedule a therapist at home for the summer break. (3) Generalized anxiety disorder: 11/06 - Continue SSRI which was just increased a couple of days ago, will continue and monitor - Work on behavioral techniques for managing anxiety, patient would like to be referred for therapy in her hometown as returning there in a couple weeks after the semester ends 11/07 - Continue current medication regimen - Continue to assist with development of healthy coping skills Mental Health & Subst Abuse Tx Psychiatrist Name of Psychiatrist: Dr. Nima Cartagena Psychiatrist's Date of Appointment with Psychiatrist: 11/08/20 Time of Appointment with Psychiatrist: 3:00 p.m. Psychiatric Appointment Comment: [id number] [id number] Therapist Name of Therapist: ANALIA Juárez Therapist's Date of Therapist Appointment: 11/12/20 Time of Therapist Appointment: 11:00 a.m. Therapy Appointment Comment: Telehealth Second Cutter Name of Second Cutter: [facility] Phone Number for Second Cutter: [phone] Case Management Appointment Comment: Will follow up with you via telephone call Post Discharge Appointments Primary Care Physician Name Of Family Doctor: [facility] Time of Appointment with PCP: Follow up as needed Provider Appointment Comment: [facility] Smoking Cessation Counseling Tobacco Cessation Medication Prescribed at Discharge: Not Applicable/Non-Smoker Contact Information Discharge Discharge [address]: [address] [place] [id number] Contact Information Comment: Permanent Home Address Discharge Plan Discharge Items Patient Disposition: Home - Self-Care Reason For Visit: BIPOLAR Discharge Diagnosis: Bipolar disorder NOS RIZWANA Condition on Discharge: Good Activity: Per Instructions section Non-emergency contact: Psychiatrist and Therapist Call non-emergency contact if: you have any medication questions and your symptoms worsen Follow-up/Referrals: [facility] [Primary Care Provider] - Diet: Regular Addtl Attending Provider Instructions: SPECIAL CARE INSTRUCTIONS: 1. Follow through with your scheduled aftercare appointments. If unable to keep an appointment, please call to reschedule. 2. Take your medication only as prescribed. Medication should not be changed or stopped without the approval of your doctor. In the event of worsening symptoms or concerns about side effects, contact your doctor immediately. 3. Utilize new healthy coping skills, anger management skills, and stress management skills learned during your hospitalization. Journal feelings and process them with a support person. Identify stressors or situations that m ay result in relapse, deterioration or inappropriate behaviors and develop a plan to deal with those issues. 4. If your coping skills are ineffective and you are in crisis, contact your tpatie providers for direction. If unable to reach your providers, please call the [facility] CRISIS LINE AT , go to the [facility] walk-in center at [address] [place] [address] A, [place], or go to the closest Emergency Room. 5. Avoid alcohol and un-prescribed drugs. 6. You have been provided with the Mental Health Advance Directives Pamphlet for your review. AFTERCARE APPOINTMENTS: * Please call your insurance company prior to your scheduled appointment to confirm your aftercare providers are covered. Take your insurance information to your appointments. WHO TO CALL AND WHEN: Medical Emergencies: For questions or emergencies related to your hospital stay, please contact the Inpatient Behavioral Health Unit at [phone]. A molder sweep is on-call 07/02 for the Behavioral Health Unit for emergencies At any time you feel your situation is an emergency, you may also call 911 immediately. Pending Studies at Discharge: No Stand-Alone Forms: [facility], Smoking Cessation Medications and DC Order Prescriptions: Continued fluoxetine 20 mg Capsule 20 mg PO HS RF: 0 trazodone 50 mg tablet 50 mg PO HS PRN (Reason: Sleep) RF: 0 fluoxetine 10 mg capsule 10 mg PO HS RF: 0 lorazepam 1 mg tablet 1 mg PO HS PRN (Reason: Anxiety) RF: 0 Latuda 40 mg tablet 20 mg PO DAILY RF: 0 Discharge Orders: Discharge Order (Routine); Ordered 11/08/20 Ordered By: Merly Browning Admission Data Admit Date/Time: 11/05/20 17:38 Attending Provider: Merly Browning Admit Provider: April Padron Primary Care Provider: [facility] Other Interventions: Discharge Summary Assessment (RN) Last Done: 11/08/20 09:17 PSY Interdisciplinary Discharge Planning Last Done: 11/08/20 09:19 Coding Level of Care Code 94576 D/C day mgmt > 30 min Diagnoses Suicidal ideation R45.851 Bipolar disorder F31.9 Generalized anxiety disorder F41.1
== END 2020-11-08 11:00 | disposition home or self-care (01) | DRG 885 ==
LOC: ED 13:59 → 3S 17:38